=== PATIENT | female | born 1985 | race American Indian/Alaskan Native ===

== ENCOUNTER 2018-10-10 10:05 | Emergency (ER) | payer OTHER, MEDICARE ==
[2018-10-10 10:16] VITALS: BP 140/73
[2018-10-10] MEDS ORDERED: DECADRON IM ONE (10:51)
--- NOTE | 2018-10-10 10:55 | Emergency Department Report ---
Minor Respiratory - HPI Chief Complaint: Upper Respiratory Infection Stated Complaint: HIGH [id number]/HEADACHE Time Seen by Provider: 10/10/18 10:51 Duration: 3 Days Pain Location: Facial, Throat, Nose, Ear Severity: mild Minor Respiratory: Yes Rhinorrhea, Yes Sore Throat, Yes Able to Tolerate Fluids, Yes Ear Pain, Yes Fever (subjective), No Cough, No Sick Contacts, No Hemoptysis, No Chest Pain, No Shortness of Breath Other History: Pt is 33 year old with head congestion, runny nose, and sore throat. she reports subjective fever. VSS. afebrile ED Review of Systems ROS: Stated complaint: HIGH [id number]/HEADACHE Other details as noted in HPI Comment: All other systems reviewed and negative Constitutional: see HPI, chills Eyes: as per HPI. denies: eye pain ENT: as per HPI, ear pain, throat pain Respiratory: no symptoms reported, see HPI. denies: shortness of breath, wheezing Cardiovascular: denies: chest pain Endocrine: denies: excessive sweating Gastrointestinal: denies: abdominal pain Genitourinary: denies: urgency Musculoskeletal: denies: back pain Skin: denies: lesions Neurological: as per HPI, headache. denies: weakness Psychiatric: denies: anxiety Hematological/Lymphatic: denies: easy bleeding ED Past Medical Hx - Past Medical History Previous Medical History?: No - Surgical History Past Surgical History?: Yes Additional Surgical History: C section. - Social History Smoking Status: Never Smoker Substance Use Type: Marijuana - Medications Home Medications: Home Medications Medication Instructions Recorded Confirmed Last Taken Type Amoxicillin 500 mg PO BID #20 capsule 10/10/18 Unknown Rx Cetirizine HCl [ZyrTEC] 10 mg PO DAILY #30 capsule 10/10/18 Unknown Rx Fluticasone [Flonase] 1 spray NS QDAY #1 bottle 10/10/18 Unknown Rx predniSONE [Deltasone] 20 mg PO DAILY #5 tablet 10/10/18 Unknown Rx Minor Respiratory Exam - Exam General: Vital signs noted. No distress. Alert and acting appropriately. frontal and max sinus tenderness on exam lungs cta no edema HEENT: Yes Pharyngeal Erythema, Yes Moist Mucous Membranes, Yes Rhinorrhea, No Pharyngeal Exudates, No Conjuctival Injection, No Frontal Tenderness, No Maxillary Tenderness Ear: Both TM Erythema, Neither TM Bulge, Neither EAC Pain, Neither EAC Discharge Neck: Yes Supple, No Adenopathy Lungs: Yes Good Air Exchange, No Wheezes, No Ronchi, No Stridor, No Cough, No Labored Respirations, No Retractions, No Use of Accessory Muscles, No Other Abnormal Lung Sounds Heart: Yes Regular, No Murmur Abdomen: Yes Normal Bowel Sounds, No Tenderness, No Peritoneal Signs Skin: No Rash, No Edema Neurologic: Alert and oriented, no deficits. Musculoskeletal: Unremarkable. ED Course Vital Signs 10/10/18 10:15 Temperature 98.2 F Pulse Rate 85 Respiratory 18 Rate Blood Pressure 140/73 O2 Sat by Pulse 100 Oximetry ED Medical Decision Making - Medical Decision Making simple urti medicated in ER Dc home with dc plan of care VSS taking po no fever non toxic ambulatory Vital Signs 10/10/18 10:15 Temperature 98.2 F Pulse Rate 85 Respiratory 18 Rate Blood Pressure 140/73 O2 Sat by Pulse 100 Oximetry Critical care attestation.: If time is entered above; I have spent that time in minutes in the direct care of this critically ill patient, excluding procedure time. ED Disposition Clinical Impression: URTI (acute upper respiratory infection), Sinusitis, Seasonal allergies, Obesity Disposition: DC- TO HOME OR SELFCARE Is pt being admited?: No Does the pt Need Aspirin: No Condition: Stable Instructions: Sinusitis (ED) Additional Instructions: MOTRIN OR TYLENOL FOR PAIN HYDRATE WELL WITH WATER MED ORDERED TODAY FOLLOW UP WITH PCP REFERRAL BELOW. DIET AND ACTIVITY TOLERATED Referrals: [facility] [Outside] - 3-5 Days Time of Disposition: 10:54
== END 2018-10-10 11:23 | disposition home or self-care (01) ==
LOC: ED 10:05
DX: J01.90 Acute sinusitis, unspecified (principal); J30.2 Other seasonal allergic rhinitis; E66.9 Obesity, unspecified; Z68.42 Body mass index [BMI] 45.0-49.9, adult
CPT/HCPCS: 96372; 99281; J1100